=== PATIENT | female | born 1955 | race Caucasian/White ===

== ENCOUNTER → 2020-08-14 | Outpatient (CLI) | payer OTHER ==
[~2020-08-14] MED LIST: ASPIRIN81 MG PO; CELEBREX100 MG PO; CRESTOR20 MG PO; GLIMEPIRIDE4 MG PO; LISINOPRIL40 MG PO; METFORMIN HCL500 M2 PO; OMEPRAZOLE40 MG PO; PIOGLITAZONE HC45 MG PO
== END ==
LOC: CT 12:58
DX: R59.0 Localized enlarged lymph nodes (principal); D72.829 Elevated white blood cell count, unspecified; R10.30 Lower abdominal pain, unspecified; R30.0 Dysuria
CPT/HCPCS: 71260; Q9967

== ENCOUNTER → 2021-04-16 | Outpatient (CLI) | payer OTHER | LOC: MAMO 02-04 11:30 | DX: R91.1 Solitary pulmonary nodule (principal); D51.9 Vitamin B12 deficiency anemia, unspecified; Z12.31 Encounter for screening mammogram for malignant neoplasm of breast; D72.829 Elevated white blood cell count, unspecified; R10.30 Lower abdominal pain, unspecified; R30.0 Dysuria | CPT/HCPCS: 71260; 77063; 77067; Q9967 ==